=== PATIENT | female | born 1950 | race Native Hawaiian/Other Pacific Islander ===

== ENCOUNTER 2016-08-31 08:26 | Emergency (ER) | payer OTHER ==
[~2016-08-31] VITALS: Ht 170.2 cm; Wt 93.9 kg
[2016-08-31 08:37] VITALS: TEMP 98.4
[2016-08-31] MEDS ORDERED: LISI5TAB10 PO (08:39)
[2016-08-31] MEDS ORDERED: SYNTHROID137 MCG PO (08:39)
[2016-08-31] MEDS ORDERED: WOMENS MULTI VITAMIN OR (08:41)
[2016-08-31] MEDS ORDERED: VITAMIN D31000 UNIT OR (08:41)
[2016-08-31] MEDS ORDERED: ASPIRIN ADULT L81 MG OR (08:42)
[2016-08-31 09:02] LABS: PLATELET COUNT 337 K/uL (152-353)
[2016-08-31 09:17] LABS: POTASSIUM 3.9 mmol/L (3.6-5.2)
[2016-08-31 09:52] VITALS: BP 148/84
== END 2016-08-31 09:54 | disposition home or self-care (01) ==
LOC: ED 08:26
PROVIDERS: Family Medicine
DX: J20.9 Acute bronchitis, unspecified (principal); S29.011A Strain of muscle and tendon of front wall of thorax, initial encounter
CPT/HCPCS: 36415; 80053; 85027; 96372; 99283; J1885

== ENCOUNTER 2020-03-26 08:53 | Outpatient (CLI) | payer OTHER ==
[~2020-03-26 08:53] MED LIST: ASPIRIN ADULT L81 MG OR; LISI5TAB10 PO; SYNTHROID137 MCG PO; VITAMIN D31000 UNIT OR; WOMENS MULTI VITAMIN OR
== END 2020-03-26 19:04 | disposition home or self-care (01) ==
LOC: US 08:53
DX: N18.3 Chronic kidney disease, stage 3 (moderate) (principal)

== ENCOUNTER 2021-06-04 09:41 | Outpatient (CLI) | payer OTHER ==
[2021-06-04 10:16] LABS: PLATELET COUNT 261 K/uL (152-353)
== END 2021-06-04 19:04 | disposition home or self-care (01) ==
LOC: LABW 09:41
PROVIDERS: ATTEND Internal Medicine
DX: I12.9 Hypertensive chronic kidney disease with stage 1 through stage 4 chronic kidney disease, or unspecified chronic kidney disease (principal); N18.30 Chronic kidney disease, stage 3 unspecified; E11.29 Type 2 diabetes mellitus with other diabetic kidney complication
CPT/HCPCS: 36415; 80048; 81000; 82040; 82570; 83883; 84100; 84155; 84550; 85027; 86038; 86900; 86901

== ENCOUNTER 2021-07-08 08:37 | Outpatient (CLI) | payer OTHER ==
[2021-07-08 08:57] LABS: PLATELET COUNT 289 K/uL (152-353)
[2021-07-08 09:04] LABS: POTASSIUM 4.3 mmol/L (3.6-5.2)
== END 2021-07-08 18:49 | disposition home or self-care (01) ==
LOC: LABW 08:37
PROVIDERS: ATTEND Internal Medicine
DX: N17.9 Acute kidney failure, unspecified (principal); N18.30 Chronic kidney disease, stage 3 unspecified
CPT/HCPCS: 36415; 80048; 82040; 84100; 84165; 84550; 85027

== ENCOUNTER 2021-09-03 09:45 | Outpatient (CLI) | payer OTHER ==
[2021-09-03 10:14] LABS: PLATELET COUNT 332 K/uL (152-353)
[2021-09-03 10:25] LABS: POTASSIUM 4.5 mmol/L (3.6-5.2)
== END 2021-09-03 19:05 | disposition home or self-care (01) ==
LOC: LABW 09:45
PROVIDERS: ATTEND Internal Medicine
DX: I12.9 Hypertensive chronic kidney disease with stage 1 through stage 4 chronic kidney disease, or unspecified chronic kidney disease (principal); N18.30 Chronic kidney disease, stage 3 unspecified
CPT/HCPCS: 36415; 80048; 82040; 84100; 84550; 85027

== ENCOUNTER 2021-12-10 09:11 | Outpatient (CLI) | payer OTHER ==
[2021-12-10 09:30] LABS: PLATELET COUNT 287 K/uL (152-353)
== END 2021-12-10 18:50 | disposition home or self-care (01) ==
LOC: LABW 09:11
PROVIDERS: ATTEND Internal Medicine
DX: I12.9 Hypertensive chronic kidney disease with stage 1 through stage 4 chronic kidney disease, or unspecified chronic kidney disease (principal); N18.30 Chronic kidney disease, stage 3 unspecified; E11.29 Type 2 diabetes mellitus with other diabetic kidney complication
CPT/HCPCS: 36415; 80048; 80061; 82040; 83036; 84100; 84550; 85027

== ENCOUNTER 2022-01-24 08:40 | Outpatient (CLI) | payer OTHER ==
[2022-01-24 09:12] LABS: PLATELET COUNT 253 K/uL (152-353)
== END 2022-01-24 19:03 | disposition home or self-care (01) ==
LOC: LABW 08:40
PROVIDERS: ATTEND Obstetrics & Gynecology Obstetrics
DX: E11.9 Type 2 diabetes mellitus without complications (principal); I10 Essential (primary) hypertension
CPT/HCPCS: 36415; 80053; 80061; 82043; 82570; 83036; 83525; 84443; 84481; 85027

== ENCOUNTER 2022-04-21 08:38 | Outpatient (CLI) | payer OTHER ==
[2022-04-21 09:15] LABS: PLATELET COUNT 290 K/uL (152-353)
[2022-04-21 09:19] LABS: POTASSIUM 4.2 mmol/L (3.6-5.2)
== END 2022-04-21 20:40 | disposition home or self-care (01) ==
LOC: LABW 08:38
PROVIDERS: ATTEND Internal Medicine
DX: I12.9 Hypertensive chronic kidney disease with stage 1 through stage 4 chronic kidney disease, or unspecified chronic kidney disease (principal); N18.32 Chronic kidney disease, stage 3b; E11.9 Type 2 diabetes mellitus without complications
CPT/HCPCS: 36415; 80053; 80061; 82043; 82570; 83036; 83525; 84100; 85027

== ENCOUNTER 2022-07-22 09:35 | Outpatient (CLI) | payer OTHER ==
[2022-07-22 10:01] LABS: POTASSIUM 4.1 mmol/L (3.6-5.2)
[2022-07-22 10:03] LABS: PLATELET COUNT 280 K/uL (152-353)
== END 2022-07-22 19:15 | disposition home or self-care (01) ==
LOC: LABW 09:35
PROVIDERS: ATTEND Internal Medicine
DX: I12.9 Hypertensive chronic kidney disease with stage 1 through stage 4 chronic kidney disease, or unspecified chronic kidney disease (principal); N18.4 Chronic kidney disease, stage 4 (severe); E11.29 Type 2 diabetes mellitus with other diabetic kidney complication
CPT/HCPCS: 36415; 80048; 80061; 82040; 83036; 84100; 84550; 85027

== ENCOUNTER 2022-10-20 08:50 | Outpatient (CLI) | payer OTHER ==
[2022-10-20 09:21] LABS: PLATELET COUNT 242 K/uL (152-353)
[2022-10-20 09:35] LABS: POTASSIUM 4.1 mmol/L (3.6-5.2)
== END 2022-10-20 21:05 | disposition home or self-care (01) ==
LOC: LABW 08:50
PROVIDERS: ATTEND Internal Medicine
DX: I12.9 Hypertensive chronic kidney disease with stage 1 through stage 4 chronic kidney disease, or unspecified chronic kidney disease (principal); N18.32 Chronic kidney disease, stage 3b; E11.29 Type 2 diabetes mellitus with other diabetic kidney complication
CPT/HCPCS: 36415; 80048; 80061; 82040; 83036; 84100; 84550; 85027

== ENCOUNTER 2023-04-20 08:30 | Outpatient (CLI) | payer OTHER ==
[2023-04-20 16:00] LABS: PLATELET COUNT 221 K/uL (152-353)
== END 2023-04-20 19:13 | disposition home or self-care (01) ==
LOC: LABW 08:30
PROVIDERS: ATTEND Internal Medicine
DX: I12.9 Hypertensive chronic kidney disease with stage 1 through stage 4 chronic kidney disease, or unspecified chronic kidney disease (principal); N18.32 Chronic kidney disease, stage 3b; E11.9 Type 2 diabetes mellitus without complications
CPT/HCPCS: 36415; 80061; 80069; 83036; 84550; 85027